=== PATIENT | female | born 1930 | race Caucasian/White ===

== ENCOUNTER 2017-03-28 05:08 | Emergency (ER) | payer MEDICARE ==
--- NOTE | 2017-03-28 06:07 | CT Preliminary Report ---
Exam: CT HEAD W/O IMPRESSION: Generalized age-related cortical atrophic changes without evidence of acute intracranial abnormality. [facility] SITE ID: [id number]
--- NOTE | 2017-03-28 06:10 | CT Preliminary Report ---
Exam: CT CERVICAL SPINE W/O IMPRESSION: 1. No acute cervical spine fracture. 2. C2-C3 congenital fusion. [facility] SITE ID: [id number]
--- NOTE | 2017-03-28 06:13 | CT Report ---
EXAM: CT HEAD EXAM DATE: 03/28/2017 05:51 AM. CLINICAL HISTORY: Head pain, fall. COMPARISON: None. TECHNIQUE: Multiaxial CT images were obtained from the foramen magnum to the vertex. Reformats: Coron al. IV contrast: None. In accordance with CT protocol optimization, one or more of the following dose reduction techniques w ere utilized for this exam: automated exposure control, adjustment of mA and/or KV based on patient s ize, or use of iterative reconstructive technique. FINDINGS: Parenchyma: No intraparenchymal hemorrhage. No evidence of mass, midline shift, or CT findings of acu te infarction. Pereira-white differentiation is distinct. Mild diffuse chronic microangiopathic white ma tter changes are evident. Extraaxial Spaces: Normal for age. No subdural or epidural collections identified. Ventricles: The ventricles and cortical sulci are moderately enlarged, consistent with age-related ti ssue loss. Sinuses and orbits: Postsurgical changes from cataract extractions are noted in the globes. The paran ismael and mastoid sinuses are not opacified. Bones: No evidence of fracture or calvarial defect. Other: Moderate intracranial atherosclerosis is noted. IMPRESSION: Generalized age-related cortical atrophic changes without evidence of acute intracranial abnormality. [facility] Referring Provider Line: [phone] SITE ID: [id number]
--- NOTE | 2017-03-28 06:15 | CT Report ---
EXAM: CT CERVICAL SPINE WITHOUT CONTRAST DATE: 03/28/2017 05:52 AM. HISTORY: Fall, neck pain. COMPARISONS: None. TECHNIQUE: Thin-section axial images were acquired of the cervical spine without contrast. Post-proce ssing: Coronal and sagittal reformats. Other: None. In accordance with CT protocol optimization, one or more of the following dose reduction techniques w ere utilized for this exam: automated exposure control, adjustment of mA and/or KV based on patient s ize, or use of iterative reconstructive technique. FINDINGS: Alignment: No scoliosis or spondylolisthesis. Bones: There is congenital fusion of the C2-C3 vertebral bodies and posterior elements. No acute cerv ical spine fracture is identified. Interspace Levels/Facets: C1-C2: Mild degenerative changes are noted anteriorly without craniocervical stenosis. C2-C3: Unremarkable. C3-C4: A central protrusion results in mild spinal canal stenosis. There is mild right foraminal narr owing due to facet arthropathy. The left foramen is patent. C4-C5: There is mild left foraminal narrowing due to facet arthropathy. The spinal canal and right fo ramen are patent. C5-C6: Unremarkable. C6-C7: Unremarkable. C7-T1: Unremarkable. Musculature: There is moderate diffuse fatty atrophy of the posterior paraspinal muscles. Other: No acute abnormality is seen in the remaining soft tissues of the neck. The lung apices are cl ear. IMPRESSION: 1. No acute cervical spine fracture. 2. C2-C3 congenital fusion. [facility] Referring Provider Line: [phone] SITE ID: [id number]
--- NOTE | 2017-03-28 06:19 | ED Physician Documentation ---
History of Present Illness - Stated complaint Stated Complaint: HEADACHE,EAR LACERATION - Chief complaint Chief Complaint: Laceration - History obtained from History obtained from: Patient, Family - History of Present Illness Timing: Today, How many hours ago (1) Pain level max: 4 Pain level now: 4 Improved by: remaining still Worsened by: moving - Additonal information Additional information: Patient is an 86-year-old female who tripped and fell this morning, striking the right side of her head and ear on a small pine wood table. She did not lose consciousness. No vomiting. Does have a mild headache and neck pain. Does not believe that she is on blood thinners. Tetanus is up-to-date Review of Systems Ten Systems: 10 systems reviewed and negative Constitutional: denies: Fever Eyes: denies: Decreased vision, Photophobia Ears: denies: Drainage/discharge Nose: denies: Rhinorrhea / runny nose, Congestion Throat: denies: Sore throat Cardiac: denies: Chest pain / pressure Respiratory: denies: Dyspnea, Cough GI: denies: Abdominal Pain, Nausea, Vomiting, Diarrhea Skin: denies: Rash Musculoskeletal: reports: Neck pain (mild). denies: Back pain Neurologic: reports: Headache (mild). denies: Focal weakness, Numbness, Confused, Altered mental status, LOC PD PAST MEDICAL HISTORY - Past Medical History Cardiovascular: Congestive heart failure, Hypertension, High cholesterol Neuro: CVA, TIA GI: Hiatal hernia, Chronic diarrhea, Diverticulitis : Frequency, Other Psych: Depression, Anxiety Other Past Medical History: prolapsed bladder - Past Surgical History Past Surgical History: Yes General: Cholecystectomy, Appendectomy, Gastric surgery Ortho: Knee replacement /DIRECTOR OUTPATIENT SERVICES: Hysterectomy HEENT: Tonsil/Adenoidectomy - Present Medications Home Medications: Ambulatory Orders Medication Instructions Recorded Confirmed Aspirin [Aspirin EC] 81 mg PO DAILY 03/28/17 03/28/17 Escitalopram [Lexapro] 10 mg PO DAILY 03/28/17 03/28/17 Omeprazole [PriLOSEC] 20 mg PO BID 03/28/17 03/28/17 Pravastatin [Pravachol] 10 mg PO DAILY 03/28/17 03/28/17 Triamterene/Hydrochlorothiazid 0.5 tab PO DAILY 03/28/17 03/28/17 [Dyazide 37.5-25 Capsule] amLODIPine [Norvasc] 10 mg PO DAILY 03/28/17 03/28/17 - Allergies Allergies/Adverse Reactions: Allergies Allergy/AdvReac Type Severity Reaction Status Date / Time levofloxacin Allergy Nausea Verified 03/28/17 05:19 morphine AdvReac Hallucinati Verified 03/28/17 05:19 ons - Social History Does the pt smoke?: No Smoking Status: Never smoker Does the pt drink ETOH?: Yes ETOH Use: Wine Does the pt have substance abuse?: No - Immunizations Immunizations are current?: No Immunizations: TDAP >10years/unknown PD ED PE NORMAL - Vitals Vital signs reviewed: Yes - General General: Alert and oriented X 3, No acute distress - HEENT HEENT: Atraumatic (no scalp hematomas), PERRL, EOMI, Moist mucous membranes - Neck Neck: Supple, no meningeal sign, Other (mild mid c-spine TTP. 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 subcutaneous. cartilage intact.) Results - Vitals Vitals: Vital Signs - 24 hr 03/28/17 05:13 Temperature 36.5 C Heart Rate 68 Respiratory 18 Rate Blood Pressure 181/85 H O2 Saturation 98 Oxygen O2 Source Room air - Rads (name of study) head CT Radiology: Prelim report reviewed, EMP read contemporaneously, See rad report ( no acute intracranial abnormality) C spine CT Radiology: Prelim report reviewed, EMP read contemporaneously, See rad report ( C2-3 congenital fusion. o/w no acute findings.) Procedures - Laceration (location) R ear Length in cm: 0.5 Wound type: Linear, Superficial, Clean Wound Preparation: Irrigated copiously NS, Wound explored, To the base, Other ( cartilage intact) Skin layer closure: Dermabond Other: Patient tolerated well, No complications, Neurovascular intact, Dressing applied Complexity: Simple PD MEDICAL DECISION MAKING - ED course Complexity details: reviewed results, re-evaluated patient, considered differential, d/w patient, d/w family ED course: Patient is an 86-year-old female presents to the emergency department after a trip and fall. No acute findings on head CT or cervical spine CT. No neurological deficits. Laceration of the right ear repaired with Dermabond. Tolerated well. Head injury instructions given at bedside. Patient and family counseled regarding signs and symptoms for which I believe and urgent re- evaluation would be necessary. Patient with good understanding of and agreement to plan and is comfortable going home at this time This document was made in part using voice recognition software. While efforts are made to proofread this document, sound alike and grammatical errors may occur. Departure - Departure Disposition: 01 Home, Self Care Clinical Impression: Laceration of ear Qualifiers: Encounter type: initial encounter Laterality: right Qualified Code(s): S01.311A - Laceration without foreign body of right ear, initial encounter Head injury Qualifiers: Encounter type: initial encounter Qualified Code(s): S09.90XA - Unspecified injury of head, initial encounter Fall Qualifiers: Encounter type: initial encounter Qualified Code(s): W19.XXXA - Unspecified fall, initial encounter Condition: Good Instructions: ED Head Injury Closed, ED Laceration Facial Skin Glue Follow-Up: your,doctor in 1 week [Other] Comments: Your CT scans are normal tonight. Return if you worsen. Do not apply ointment as this may dissolve the glue. Keep the dressing on today.
[2017-03-28 06:28] VITALS: BP 148/76
== END 2017-03-28 06:30 | disposition home or self-care (01) ==
LOC: ED 05:08
DX: S01.311A Laceration without foreign body of right ear, initial encounter (principal); W01.190A Fall on same level from slipping, tripping and stumbling with subsequent striking against furniture, initial encounter; Y92.019 Unspecified place in single-family (private) house as the place of occurrence of the external cause; I11.0 Hypertensive heart disease with heart failure; I50.9 Heart failure, unspecified; E78.00 Pure hypercholesterolemia, unspecified; Z86.73 Personal history of transient ischemic attack (TIA), and cerebral infarction without residual deficits; Z79.82 Long term (current) use of aspirin
CPT/HCPCS: 12011; 70450; 72125; 99283; 99284